=== PATIENT | male | born 1965 | race Caucasian/White ===

== ENCOUNTER 2024-04-15 11:23 | Outpatient (CLI) | payer BC | END 2024-04-15 11:24 | disposition home or self-care (01) | LOC: CSHRAD 11:23 | PROVIDERS: ATTEND Student in an Organized Health Care Education/Training Program | DX: M54.50 Low back pain, unspecified (principal); M25.562 Pain in left knee; M43.17 Spondylolisthesis, lumbosacral region; M51.37 Other intervertebral disc degeneration, lumbosacral region | CPT/HCPCS: 72100 ==